=== PATIENT | female | born 1985 | race Caucasian/White ===

== ENCOUNTER 2020-08-02 17:54 | Emergency (ER) | payer BC ==
[~2020-08-02] VITALS: Ht 165.1 cm; Wt 70.0 kg
[2020-08-02 17:56] VITALS: BP 121/78
== END 2020-08-02 18:45 | disposition home or self-care (01) ==
LOC: ER 17:54
DX: S81.812D Laceration without foreign body, left lower leg, subsequent encounter (principal); W45.8XXD Other foreign body or object entering through skin, subsequent encounter; M79.89 Other specified soft tissue disorders
CPT/HCPCS: 99283

== ENCOUNTER 2020-09-29 16:57 | Emergency (ER) | payer BC ==
[~2020-09-29] VITALS: Ht 162.6 cm; Wt 75.0 kg
[2020-09-29 17:15] VITALS: BP 116/67
[2020-09-29 17:57] LABS: BASOPHILS % 1.2 % (0.0-2.0); EOSINOPHILS % 1.4 % (0.0-5.0); HEMATOCRIT. 41.1 % (36.0-48.0); LYMPHOCYTES % 28.9 % (20.0-50.0); MEAN CORPUSCULAR HEMOGLOBIN 30.1 pg (28.0-32.0); MEAN CORPUSCULAR VOLUME 88.7 fL (81.0-99.0); MEAN PLATELET VOLUME 8.7 fl (7.4-10.4); NEUTROPHILS % 61.5 % (40.0-76.0); PLATELET 367 x1000/uL (130-400); RED BLOOD CELL COUNT 4.64 mill/uL (4.2-5.4); RED CELL DISTRIBUTION WIDTH 13.2 % (11.6-14.6)
[2020-09-29 17:59] LABS: CHLORIDE 105 mEq/L (98-107)
[2020-09-29] MEDS ORDERED: DEXAMETHASONE 4MG/ML 1ML VIAL IV ONE (18:15)
== END 2020-09-29 18:59 | disposition home or self-care (01) ==
LOC: ER 16:57
DX: F41.9 Anxiety disorder, unspecified (principal)
CPT/HCPCS: 36415; 71045; 80053; 83735; 83880; 84443; 84484; 85025; 93005; 99285; J1100